=== PATIENT | male | born 1985 | race African-American/Black ===

== ENCOUNTER 2019-01-20 01:51 | Inpatient (IN) | payer SELFPAY ==
[~2019-01-20] VITALS: Ht 170.2 cm; Wt 114.8 kg
[2019-01-20] VITALS (12 sets, daily range): BP systolic 116–150; BP diastolic 75–108
--- NOTE | 2019-01-20 02:05 | PHYS DOC ---
Adult General Chief Complaint Chief Complaint: CHEST PAIN HPI HPI Patient is an obese 33 yo male who presents with complaint of chest pain that awoke him from sleeping. He describes the chest pain as feeling like "something is stuck". He reports the pain gets a little worse with swallowing. He denies having symptoms like this before. He denies radiation of pain through his back or into his neck or arms. He denies shortness of breath. He does report he has had anxiety attacks in the past but that they have caused shaking, never chest pain. He reports that prior to going to sleep he ate chicken fingers at [employer], then took a methylprednisolone that he was prescribed for an ear infection, and laid down. He denies family history of cardiac disease. He denies any PMH. He denies smoking, drug use, or etoh use. He denies recent surgery, immobilization, or travel. Review of Systems Review of Systems Constitutional: Denies fever or chills [] Eyes: Denies change in visual acuity, redness, or eye pain [] Respiratory: Denies cough or shortness of breath [] Cardiovascular: Admits chest pain. Denies palpitations. GI: Denies abdominal pain, nausea, vomiting, bloody stools or diarrhea [] : Denies dysuria or hematuria [] All other systems were reviewed and found to be within normal limits, except as documented in this note. Allergies Allergies Allergies Coded Allergies Type Severity Reaction Last Updated Verified No Known Drug Allergies 01/20/19 No Physical Exam Physical Exam Constitutional: Well developed, well nourished, no acute distress, non-toxic appearance. [] HENT: Normocephalic, atraumatic, Cardiovascular:Heart rate regular rhythm, no murmur [] Lungs & Thorax: Bilateral breath sounds clear to auscultation [] Abdomen: Bowel sounds normal, soft, no tenderness, no masses Back: No tenderness, no lesions Extremities: No tenderness, no cyanosis, no swelling, no palpable cords. Current Patient Data Vital Signs Vital Signs Date Time Temp Pulse Resp B/P (MAP) Pulse Ox O2 Delivery O2 Flow Rate FiO2 01/20/19 02:05 98.5 158/92 (114) 99 Room Air 98.5 Lab Values Laboratory Tests Test 01/20/19 02:20 White Blood Count 8.1 x10^3/uL (4.0-11.0) Red Blood Count 4.82 x10^6/uL (4.30-5.70) Hemoglobin 14.4 g/dL (13.0-17.5) Hematocrit 43.2 % (39.0-53.0) Mean Corpuscular Volume 90 fL (79-100) Mean Corpuscular Hemoglobin 30 pg (25-35) Mean Corpuscular Hemoglobin Concent 33 g/dL (31-37) Red Cell Distribution Width 13.8 % (11.5-14.5) Platelet Count 285 x10^3/uL (140-400) Neutrophils (%) (Auto) 69 % (31-73) Lymphocytes (%) (Auto) 22 % (24-48) L Monocytes (%) (Auto) 8 % (0-9) Eosinophils (%) (Auto) 0 % (0-3) Basophils (%) (Auto) 1 % (0-3) Neutrophils # (Auto) 5.6 x10^3uL (1.8-7.7) Lymphocytes # (Auto) 1.8 x10^3/uL (1.0-4.8) Monocytes # (Auto) 0.6 x10^3/uL (0.0-1.1) Eosinophils # (Auto) 0.0 x10^3/uL (0.0-0.7) Basophils # (Auto) 0.1 x10^3/uL (0.0-0.2) Sodium Level 143 mmol/L (136-145) Potassium Level 3.9 mmol/L (3.5-5.1) Chloride Level 106 mmol/L (98-107) Carbon Dioxide Level 27 mmol/L (21-32) Anion Gap 10 (6-14) Blood Urea Nitrogen 18 mg/dL (8-26) Creatinine 1.1 mg/dL (0.7-1.3) Estimated GFR (Cockcroft-Gault) 77.1 BUN/Creatinine Ratio 16 (6-20) Glucose Level 140 mg/dL (70-99) H Calcium Level 8.7 mg/dL (8.5-10.1) Total Bilirubin 0.3 mg/dL (0.2-1.0) Aspartate Amino Transferase (AST) 14 U/L (15-37) L Alanine Aminotransferase (ALT) 30 U/L (16-63) Alkaline Phosphatase 81 U/L (46-116) Troponin I Quantitative 0.196 ng/mL (0.000-0.055) Total Protein 6.9 g/dL (6.4-8.2) Albumin 3.7 g/dL (3.4-5.0) Albumin/Globulin Ratio 1.2 (1.0-1.7) Lipase 105 U/L (73-393) Laboratory Tests 01/20/19 02:20 Laboratory Tests 01/20/19 02:20 EKG EKG [@0157; HR 66 BPM; NS NO ACUTE ISCHEMIC CHAGNES NOTED. Radiology/Procedures Radiology/Procedures [PROCEDURE: PORTABLE CHEST 1V Single view chest dated 01/20/2019. No comparison available. Chest pain. FINDINGS: Single upright portable exam performed. Study is limited due to low lung volumes. Heart and mediastinal contours within normal limits. Lungs are clear. No consolidation or pleural effusion. No pneumothorax. IMPRESSION: No acute radiographic abnormality. Electronically signed by: Angie Miranda MD (01/20/2019 3:35 AM) [facility] DICTATED and SIGNED BY: ANGIE MIRANDA MD DATE: 01/20/19 0335 ] Course & Med Decision Making Course & Med Decision Making Patient is a 30 yo male with no PMH who presents with complaint of sudden onset midline sternal pain. Patient reports he ate at [employer] this evening, took medication for his ear, then went to bed. He denies using drugs tonight. On physical exam vitals WNL, patient resting comfortably. Heart sounds RRR no M. Lungs CTAB. EKG reveals NSR w/ HR at 66bpm. CXR unremarkable. Labs reveal elevated troponin 0.196. Remainder of labs WNL. Patient received nitroglycerin and aspirin. D/t elevated troponin decision made to admit patient. Patient admitted to [facility] for further evaluation PER usual local protocol. Discussed plan with patient who voiced understanding and agreement with the plan. heparin initiated inpt cards consultation placed. no pleruitic pain not sob at all. does not sound like pe or dissection. Dragon Disclaimer Dragon Disclaimer This electronic medical record was generated, in whole or in part, using a voice recognition dictation system. Departure Departure Impression: Primary Impression: Chest pain Disposition: ADMITTED INPATIENT Admitting Physician: Benoit Hunt Condition: SARAI YI MD Jan 20, 2019 02:05
[2019-01-20 02:39] LABS: BASO # 0.1 x10^3/uL (0.0-0.2); BASO % 1 % (0-3); EOS % 0 % (0-3); HEMATOCRIT 43.2 % (39.0-53.0); HEMOGLOBIN 14.4 g/dL (13.0-17.5); LYMPH # 1.8 x10^3/uL (1.0-4.8); LYMPH % 22 % (24-48); MEAN CORPUSCULAR HEMOGLOBIN 30 pg (25-35); MEAN CORPUSCULAR HGB CONC 33 g/dL (31-37); MEAN CORPUSCULAR VOLUME 90 fL (79-100); MONO # 0.6 x10^3/uL (0.0-1.1); MONO % 8 % (0-9); NEUT # 5.6 x10^3uL (1.8-7.7); NEUT % 69 % (31-73); PLATELET COUNT 285 x10^3/uL (140-400); RED BLOOD COUNT 4.82 x10^6/uL (4.30-5.70); RED CELL DISTRIBUTION WIDTH 13.8 % (11.5-14.5); WHITE BLOOD COUNT 8.1 x10^3/uL (4.0-11.0)
[2019-01-20 02:48] LABS: CALCIUM 8.7 mg/dL (8.5-10.1); CREATININE 1.1 mg/dL (0.7-1.3); GFR 77.1; POTASSIUM 3.9 mmol/L (3.5-5.1)
[2019-01-20 02:53] LABS: ALBUMIN 3.7 g/dL (3.4-5.0); ALBUMIN/GLOBULIN RATIO 1.2 (1.0-1.7); TOTAL BILIRUBIN 0.3 mg/dL (0.2-1.0); TOTAL PROTEIN 6.9 g/dL (6.4-8.2)
[2019-01-20] MEDS ORDERED: HEPARIN 25,000UTS/500ML PREMIX 500 ML IV PRN (03:15)
[2019-01-20] MEDS ORDERED: ASPIRIN CHEWABLE 81 MG TABLET. PO ONE (03:15)
[2019-01-20] MEDS ORDERED: HEPARIN for IV BOLUS 10,000 UNIT/10 ML VIAL. IV PRN (03:15)
[2019-01-20] MEDS ORDERED: MORPHINE SULFATE 4 MG/ML VIAL. IV PRN (03:15)
[2019-01-20] MEDS ORDERED: NITROGLYCERIN SUBLINGUAL 0.4 MG BOTTLE OF 25. SL PRN ×3 (03:15→13:30)
--- NOTE | 2019-01-20 03:39 | RAD ---
Single view chest dated 01/20/2019. No comparison available. Chest pain. FINDINGS: Single upright portable exam performed. Study is limited due to low lung volumes. Heart and mediastinal contours within normal limits. Lungs are clear. No consolidation or pleural effusion. No pneumothorax. IMPRESSION: No acute radiographic abnormality. Electronically signed by: Shaw Miranda MD (01/20/2019 3:35 AM) [facility]
--- NOTE | 2019-01-20 04:30 | NUR ---
The patient, GEOVANNY ABDUL, 33 y/o, M admitted by JACK CHINCHILLA III, DO, was given written information regarding hospital policies, unit procedures and contact persons. DISCUSSED POC, LABS, CARDIAC LABS, HEPARIN DRIP, AND MAGNETIC TAPE WINDER EXPLAINED AND APPLIED TO PT. Valuables were checked and DOCUMENTED IN EMAR LCRN.
--- NOTE | 2019-01-20 07:38 | EKG ---
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
--- NOTE | 2019-01-20 08:00 | PDOC1 ---
History and Physical Date of Admission Date of Admission DATE: 01/20/19 TIME: 07:43 Identification/Chief Complaint Chief Complaint Chest pain Source Source: Patient History of Present Illness History of Present Illness 33 yo obese male who presents with complaint of chest pain that awoke him from sleeping at 1:00am. He describes the chest pain as feeling like "something is stuck". Patient had an Uber drive him here. He reports the pain gets a little worse with swallowing. He denies having symptoms like this before. He denies radiation of pain through his back or into his neck or arms. He denies shortness of breath. He does report he has had anxiety attacks in the past but that they have caused shaking, never chest pain. He reports that prior to going to sleep he ate chicken fingers at [employer], then took a methylprednisolone that he was prescribed for an ear infection, and laid down. He denies family history of cardiac disease. He denies any PMH. He denies smoking, drug use, or etoh use. He denies recent surgery, immobilization, or travel. Trop noted to be mildly elevated in ED. Was initiated on heparin gtt. Subsequent trop level further elevated this morning. Patient denies any drug use including cocaine or methamphetamine use. UDS pending. Reports suffering severe LILLY in 2009. Was treated at [facility]. Patient thinks he could have had a blood clot of something as he was treated with blood thinners for 3 months. Mother unsure as to what he was diagnosed with and his father is too. Past Medical History Cardiovascular: No pertinent hx Pulmonary: No pertinent hx GI: No pertinent hx Heme/Onc: No pertinent hx Hepatobiliary: No pertinent hx Psych: No pertinent hx Rheumatologic: No pertinent hx Infectious disease: No pertinent hx ENT: No pertinent hx Renal/: No pertinent hx Endocrine: No pertinent hx Dermatology: No pertinent hx Past Surgical History Past Surgical History: No pertinent history Family History Family History: Heart Disease (Maternal and paternal grandparents) Current Problem List Problem List Problems Medical Problems: (1) Chest pain Status: Acute Current Medications Current Medications Current Medications Aspirin (Children'S Aspirin) 324 mg 1X ONCE PO Last administered on 01/20/19at 03:23; Start 01/20/19 at 03:15; Stop 01/20/19 at 03:16; Status DC Nitroglycerin (Nitrostat) 0.4 mg PRN Q5MIN PRN SL CHEST PAIN; Start 01/20/19 at 03:15 Morphine Sulfate (Morphine Sulfate) 4 mg PRN Q2HR PRN IV PAIN; Start 01/20/19 at 03:15; Stop 01/21/19 at 03:14 Nitroglycerin (Nitrostat) 0.4 mg PRN Q5MIN PRN SL CHEST PAIN; Start 01/20/19 at 03:15; Stop 01/21/19 at 03:14 Heparin Sodium/ Dextrose 500 ml @ 0 mls/hr CONT PRN IV SEE I/O RECORD Last administered on 01/20/19at 03:25; Start 01/20/19 at 03:15 Heparin Sodium (Porcine) (Heparin Sodium) 2,800 unit PRN Q6HRS PRN IV FOR UFH LEVEL LESS THAN 0.2 Last administered on 01/20/19at 03:24; Start 01/20/19 at 03:15 Allergies Allergies: Coded Allergies: No Known Drug Allergies (Unverified , 01/20/19) ROS General: YES: Fatigue, Malaise; No: Chills, Night Sweats, Appetite, Other PSYCHOLOGICAL ROS: No: Anxiety, Behavioral Disorder, Concentration difficultie , Decreased libido, Depression, Disorientation, Hallucinations, Hostility, Irritablity, Memory difficulties, Mood Swings, Obsessive thoughts, Physical abuse, Sexual abuse, Sleep disturbances, Suicidal ideation, Other Eyes: No Blurry vision, No Decreased vision, No Double vision, No Dry eyes, No Excessive tearing, No Eye Pain, No Itchy Eyes, No Loss of vision, No Photophobia , No Scotomata, No Uses contacts, No Uses glasses, No Other HEENT: No: Heacaches, Visual Changes, Hearing change, Nasal congestion, Nasal discharge, Oral lesions, Sinus pain, Sore Throat, Epistaxis, Sneezing, Snoring, Tinnitus, Vertigo, Vocal changes, Other ALLERGY AND IMMUNOLOGY: No: Hives, Insect Bite Sensitivity, Itchy/Watery Eyes, Nasal Congestion, Post Nasal Drip, Seasonal Allergies, Other Hematological and Lymphatic: No: Bleeding Problems, Blood Clots, Blood Transfusions, Brusing, Night Sweats, Pallor, Swollen Lymph Nodes, Other ENDOCRINE: No: Breast Changes, Galactorrhea, Hair Pattern Changes, Hot Flashes , Malaise/lethargy, Mood Swings, Palpitations, Polydipsia/polyuria, Skin Changes , Temperature Intolerance, Unexpected Weight Changes, Other Breast: No New/Changing Breast Lumps, No Nipple changes, No Nipple discharge, No Other Respiratory: YES: Pleuritic Pain, Shortness of breath, SOB with excertion; No: Cough, Hemoptysis, Orthopnea, Sputum Changes, Stridor, Tachypnea, Wheezing, Other Cardiovascular: yes Chest Pain, yes Palpitations; No Orthopnea, No Paroxysmal Noc. Dyspnea, No Edema, No Lt Headedness, No Other Gastrointestinal: No Nausea, No Vomiting, No Abdominal Pain, No Diarrhea, No Constipation, No Melena, No Hematochezia, No Other Genitourinary: No Dysuria, No Frequency, No Incontinence, No Hematuria, No Retention, No Discharge, No Urgency, No Pain, No Flank Pain, No Other, No , No , No , No , No , No , No Musculoskeletal: No Gait Disturbance, No Joint Pain, No Joint Stiffness, No Joint Swelling, No Muscle Pain, No Muscular Weakness, No Pain In:, No Swelling In:, No Other Neurological: No Behavorial Changes, No Bowel/Bladder ControlChng, No Confusion , No Dizziness, No Gait Disturbance, No Headaches, No Impaired Coord/balance, No Memory Loss, No Numbness/Tingling, No Seizures, No Speech Problems, No Tremors, No Visual Changes, No Weakness, No Other Skin: No Dry Skin, No Eczema, No Hair Changes, No Lumps, No Mole Changes, No Mottling, No Nail Changes, No Pruritus, No Rash, No Skin Lesion Changes, No Other, No Acne Physical Exam General: Alert, Oriented X3, Cooperative, No acute distress HEENT: Atraumatic, PERRLA, EOMI, Mucous membr. moist/pink Lungs: Clear to auscultation, Normal air movement Heart: S1S2, RRR, no gallops, no murmurs Abdomen: Normal bowel sounds, Soft, No tenderness, No hepatosplenomegaly, No masses Male Genitals Exam: normal genitalia, normal prostate Extremities: No clubbing, No cyanosis, No edema, Normal pulses, No tenderness/ swelling Skin: No rashes, No breakdown, No significant lesion Neuro: Normal gait, Normal speech, Strength at 5/5 X4 ext, Normal tone, Sensation intact, Cranial nerves 3-12 NL, Reflexes 2+ Psych/Mental Status: Mental status NL, Mood NL Vitals Vitals Vital Signs Date Time Temp Pulse Resp B/P (MAP) Pulse Ox O2 Delivery O2 Flow Rate FiO2 01/20/19 05:31 Room Air 01/20/19 04:16 98.5 60 16 150/96 (114) 97 98.5 Labs Labs Laboratory Tests Test 01/20/19 02:20 White Blood Count 8.1 x10^3/uL (4.0-11.0) Red Blood Count 4.82 x10^6/uL (4.30-5.70) Hemoglobin 14.4 g/dL (13.0-17.5) Hematocrit 43.2 % (39.0-53.0) Mean Corpuscular Volume 90 fL (79-100) Mean Corpuscular Hemoglobin 30 pg (25-35) Mean Corpuscular Hemoglobin Concent 33 g/dL (31-37) Red Cell Distribution Width 13.8 % (11.5-14.5) Platelet Count 285 x10^3/uL (140-400) Neutrophils (%) (Auto) 69 % (31-73) Lymphocytes (%) (Auto) 22 % (24-48) Monocytes (%) (Auto) 8 % (0-9) Eosinophils (%) (Auto) 0 % (0-3) Basophils (%) (Auto) 1 % (0-3) Neutrophils # (Auto) 5.6 x10^3uL (1.8-7.7) Lymphocytes # (Auto) 1.8 x10^3/uL (1.0-4.8) Monocytes # (Auto) 0.6 x10^3/uL (0.0-1.1) Eosinophils # (Auto) 0.0 x10^3/uL (0.0-0.7) Basophils # (Auto) 0.1 x10^3/uL (0.0-0.2) Sodium Level 143 mmol/L (136-145) Potassium Level 3.9 mmol/L (3.5-5.1) Chloride Level 106 mmol/L (98-107) Carbon Dioxide Level 27 mmol/L (21-32) Anion Gap 10 (6-14) Blood Urea Nitrogen 18 mg/dL (8-26) Creatinine 1.1 mg/dL (0.7-1.3) Estimated GFR (Cockcroft-Gault) 77.1 BUN/Creatinine Ratio 16 (6-20) Glucose Level 140 mg/dL (70-99) Calcium Level 8.7 mg/dL (8.5-10.1) Total Bilirubin 0.3 mg/dL (0.2-1.0) Aspartate Amino Transf (AST/SGOT) 14 U/L (15-37) Alanine Aminotransferase (ALT/SGPT) 30 U/L (16-63) Alkaline Phosphatase 81 U/L (46-116) Troponin I Quantitative 0.196 ng/mL (0.000-0.055) Total Protein 6.9 g/dL (6.4-8.2) Albumin 3.7 g/dL (3.4-5.0) Albumin/Globulin Ratio 1.2 (1.0-1.7) Lipase 105 U/L (73-393) Laboratory Tests Test 01/20/19 02:20 White Blood Count 8.1 x10^3/uL (4.0-11.0) Red Blood Count 4.82 x10^6/uL (4.30-5.70) Hemoglobin 14.4 g/dL (13.0-17.5) Hematocrit 43.2 % (39.0-53.0) Mean Corpuscular Volume 90 fL (79-100) Mean Corpuscular Hemoglobin 30 pg (25-35) Mean Corpuscular Hemoglobin Concent 33 g/dL (31-37) Red Cell Distribution Width 13.8 % (11.5-14.5) Platelet Count 285 x10^3/uL (140-400) Neutrophils (%) (Auto) 69 % (31-73) Lymphocytes (%) (Auto) 22 % (24-48) Monocytes (%) (Auto) 8 % (0-9) Eosinophils (%) (Auto) 0 % (0-3) Basophils (%) (Auto) 1 % (0-3) Neutrophils # (Auto) 5.6 x10^3uL (1.8-7.7) Lymphocytes # (Auto) 1.8 x10^3/uL (1.0-4.8) Monocytes # (Auto) 0.6 x10^3/uL (0.0-1.1) Eosinophils # (Auto) 0.0 x10^3/uL (0.0-0.7) Basophils # (Auto) 0.1 x10^3/uL (0.0-0.2) Sodium Level 143 mmol/L (136-145) Potassium Level 3.9 mmol/L (3.5-5.1) Chloride Level 106 mmol/L (98-107) Carbon Dioxide Level 27 mmol/L (21-32) Anion Gap 10 (6-14) Blood Urea Nitrogen 18 mg/dL (8-26) Creatinine 1.1 mg/dL (0.7-1.3) Estimated GFR (Cockcroft-Gault) 77.1 BUN/Creatinine Ratio 16 (6-20) Glucose Level 140 mg/dL (70-99) Calcium Level 8.7 mg/dL (8.5-10.1) Total Bilirubin 0.3 mg/dL (0.2-1.0) Aspartate Amino Transf (AST/SGOT) 14 U/L (15-37) Alanine Aminotransferase (ALT/SGPT) 30 U/L (16-63) Alkaline Phosphatase 81 U/L (46-116) Troponin I Quantitative 0.196 ng/mL (0.000-0.055) Total Protein 6.9 g/dL (6.4-8.2) Albumin 3.7 g/dL (3.4-5.0) Albumin/Globulin Ratio 1.2 (1.0-1.7) Lipase 105 U/L (73-393) Images Images CXR - No acute radiographic abnormality. VTE Prophylaxis Ordered VTE Prophylaxis Devices: Yes VTE Pharmacological Prophylaxi: Yes Assessment/Plan Assessment/Plan A/P: Chest pain - with elevated trop, this is an NSTEMI, on heparin GTT. Morphine, NTG, ASA. 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 Hyperglycemia - will check A1c Obesity - ongoing, needs Hypertension - needs secondary w/u. Treat FEN - NPO PPX - SCDs FULL CODE Inpatient for NSTEMI, needs to go to cathead worker urgently JESSICA TRENT MD Jan 20, 2019 08:00
[2019-01-20] MEDS ORDERED: ANTI-COAG MONITOR BY PHARMACY. MC PRN (08:15)
--- NOTE | 2019-01-20 09:18 | PDOC2 ---
CARDIAC CONSULT DATE OF CONSULT Date of Consult DATE: 01/20/19 TIME: 09:15 REASON FOR CONSULT Reason for Consult: NSTEMI REFERRING PHYSICIAN Referring Physician: Raghu SOURCE Source: Chart review, Patient HISTORY OF PRESENT ILLNESS HISTORY OF PRESENT ILLNESS This is a 33 yo male who presented secondary to chest pain. Patient reports going to be feeling well. Woke up this morning around 1:00 am. Had aching, pressure in his central chest. [place] as if something was "stuck" in his chest. Non-radiating. Associated with SOA and nausea. No diaphoresis or palpitations. Got up out of be and took a drink. Did not improved pain. Pain continued to be pretty intense so he called an Uber to bring him to the ED for further evaluation. Pain seemed to improved with ASA in ED, but did not completely resolve. Trop noted to be mildly elevated in ED. Was initiated on heparin gtt. Subsequent trop level further elevated this morning. Patient denies any drug use including cocaine or methamphetamine use. UDS pending. Reports suffering severe LILLY in 2009. Was treated at [facility]. Patient thinks he could have had a blood clot of something as he was treated with blood thinners for 3 months. Mother unsure as to what he was diagnosed with. PAST MEDICAL HISTORY Cardiovascular: HTN Pulmonary: No pertinent hx CENTRAL NERVOUS SYSTEM: Other (possible clot? treated wtih OAC x 3 months in 2009) GI: No pertinent hx Heme/Onc: No pertinent hx Hepatobiliary: No pertinent hx Psych: Anxiety, Depression Musculoskeletal: Other (no pertinent hx) Rheumatologic: No pertinent hx Infectious disease: No pertinent hx ENT: No pertinent hx Renal/: No pertinent hx Endocrine: No pertinent hx Dermatology: No pertinent hx PAST SURGICAL HISTORY Past Surgical History: No pertinent history FAMILY HISTORY Family History: Coronary Artery Disease (grandfather), Hypertension SOCIAL HISTORY Smoke: No ALCOHOL: none Drugs: None Lives: with Family CURRENT MEDICATIONS CURRENT MEDICATIONS Current Medications Medications (Trade) Dose Ordered Sig/Edwige Route PRN Reason Start Time Stop Time Status Last Admin Dose Admin Aspirin (Children'S Aspirin) 324 mg 1X ONCE PO 01/20/19 03:15 01/20/19 03:16 DC 01/20/19 03:23 Heparin Sodium/ Dextrose 500 ml @ 0 mls/hr CONT PRN IV SEE I/O RECORD 01/20/19 03:15 01/20/19 03:25 Heparin Sodium (Porcine) (Heparin Sodium) 2,800 unit PRN Q6HRS PRN IV FOR UFH LEVEL LESS THAN 0.2 01/20/19 03:15 01/20/19 03:24 ALLERGIES ALLERGIES: Coded Allergies: No Known Drug Allergies (Unverified , 01/20/19) ROS Review of System 14 point ROS conducted with pertinent positives noted above in HPI. PHYSICAL EXAM General: Alert, Oriented X3, Cooperative, No acute distress HEENT: Atraumatic, Mucous membr. moist/pink Lungs: Clear to auscultation, Normal air movement Heart: Regular rate, Normal S1, Normal S2, No murmurs Abdomen: Soft, No tenderness Extremities: No edema, Normal pulses Neuro: Normal speech, Sensation intact Psych/Mental Status: Mental status NL, Mood NL MUSCULOSKELETAL: Osteoarthritic changes both hands VITALS VITALS Vital Signs Date Time Temp Pulse Resp B/P (MAP) Pulse Ox O2 Delivery O2 Flow Rate FiO2 01/20/19 07:00 98.1 61 18 143/108 (120) 98 Room Air 98.1 LABS Lab: Laboratory Tests Test 01/20/19 02:20 01/20/19 07:49 White Blood Count 8.1 x10^3/uL (4.0-11.0) Red Blood Count 4.82 x10^6/uL (4.30-5.70) Hemoglobin 14.4 g/dL (13.0-17.5) Hematocrit 43.2 % (39.0-53.0) Mean Corpuscular Volume 90 fL (79-100) Mean Corpuscular Hemoglobin 30 pg (25-35) Mean Corpuscular Hemoglobin Concent 33 g/dL (31-37) Red Cell Distribution Width 13.8 % (11.5-14.5) Platelet Count 285 x10^3/uL (140-400) Neutrophils (%) (Auto) 69 % (31-73) Lymphocytes (%) (Auto) 22 % (24-48) Monocytes (%) (Auto) 8 % (0-9) Eosinophils (%) (Auto) 0 % (0-3) Basophils (%) (Auto) 1 % (0-3) Neutrophils # (Auto) 5.6 x10^3uL (1.8-7.7) Lymphocytes # (Auto) 1.8 x10^3/uL (1.0-4.8) Monocytes # (Auto) 0.6 x10^3/uL (0.0-1.1) Eosinophils # (Auto) 0.0 x10^3/uL (0.0-0.7) Basophils # (Auto) 0.1 x10^3/uL (0.0-0.2) Sodium Level 143 mmol/L (136-145) Potassium Level 3.9 mmol/L (3.5-5.1) Chloride Level 106 mmol/L (98-107) Carbon Dioxide Level 27 mmol/L (21-32) Anion Gap 10 (6-14) Blood Urea Nitrogen 18 mg/dL (8-26) Creatinine 1.1 mg/dL (0.7-1.3) Estimated GFR (Cockcroft-Gault) 77.1 BUN/Creatinine Ratio 16 (6-20) Glucose Level 140 mg/dL (70-99) Calcium Level 8.7 mg/dL (8.5-10.1) Total Bilirubin 0.3 mg/dL (0.2-1.0) Aspartate Amino Transf (AST/SGOT) 14 U/L (15-37) Alanine Aminotransferase (ALT/SGPT) 30 U/L (16-63) Alkaline Phosphatase 81 U/L (46-116) Troponin I Quantitative 0.196 ng/mL (0.000-0.055) 6.446 ng/mL (0.000-0.055) Total Protein 6.9 g/dL (6.4-8.2) Albumin 3.7 g/dL (3.4-5.0) Albumin/Globulin Ratio 1.2 (1.0-1.7) Lipase 105 U/L (73-393) Heparin Anti-Xa Act, Unfractionated 0.41 IU/mL (0.30-0.70) ASSESSMENT/PLAN ASSESSMENT/PLAN 1. Chest pain, typical features 2. NSTEMI; trop highest 6. on heparin gtt 3. Hypertension 4. Hyperglycemia 5. Obesity Recommendations EKG now Echo to assess LV systolic function ASA Continue heparin gtt check lipids Add low-dose BB await UDS results If no cocaine, methamphetamines noted, will plan for cardiac catheterization with possible PCI. R/b/a discussed with patient and he is agreeable. OSWALD RODRIGUEZ APRN Jan 20, 2019 09:18
--- NOTE | 2019-01-20 10:07 | EKG ---
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
[2019-01-20 10:20] LABS: BARBITURATES NEG (NEG); BENZODIAZEPINES NEG (NEG); CANNABINOIDS NEG (NEG); COCAINE NEG (NEG); METHADONE NEG (NEG); OPIATES NEG (NEG); PHENCYCLIDINE NEG (NEG)
[2019-01-20 10:22] LABS: CHOLESTEROL/HDL RATIO 3.1
[2019-01-20 10:22] LABS: AMPHETAMINE/METHAMPHETAMINE NEG (NEG)
[2019-01-20] MEDS ORDERED: METOPROLOL TART IMMED RELEASE 25 MG TABLET. PO SCH (11:00)
--- NOTE | 2019-01-20 11:30 | CARD ---
MR#: [id number] Date of Study: 01/20/2019 Ordering Physician: OSWALD RODRIGUEZ, Referring Physician: Jace HA: Dawn Juarez APPROVED REPORT EXAM: Two-dimensional and M-mode echocardiogram with Doppler and color Doppler. Other Information Quality : GoodHR: 71bpm Rhythm : NSRTechnically limited study due to body habitus. INDICATION Chest Pain Elevated Troponin 2D DIMENSIONS RVDd2.4 (2.9-3.5cm)Left Atrium(2D)3.6 (1.6-4.0cm) IVSd1.1 (0.7-1.1cm)Aortic Root(2D)3.2 (2.0-3.7cm) LVDd5.6 (3.9-5.9cm)LVOT Diameter2.2 (1.8-2.4cm) PWd1.2 (0.7-1.1cm)LVDs3.2 (2.5-4.0cm) FS (%) 42.5 %SV112.1 ml LVEF(%)72.9 (>50%) Aortic Valve AoV Peak Lazarus.114.8cm/sAoV VTI30.7cm AO Peak GR.5.3mmHgLVOT VTI 16.86cm AO Mean GR.5mmHg TDI Lateral E' P. V10.68cm/sMedial E' P. V9.01cm/s Tricuspid Valve TR P. Yipdgoak557cr/sRAP [id number] TR Peak Gr.[id number] Pulmonary Vein S1 Ridbzuce52.2cm/sS2 Lwpbrvxu44.01cm/s D2 Gephgkch10.0cm/sPVa [id number] LEFT VENTRICLE The left ventricle is normal size. There is borderline concentric left ventricular hypertrophy. The l eft ventricular systolic function is moderately decreased. EF 40%. There is mild to moderate global h ypokinesis. Tissue Doppler imaging reveals moderate left ventricular diastolic dysfunction. RIGHT VENTRICLE The right ventricle is normal size. There is normal right ventricular wall thickness. The right ventr icular systolic function is normal. ATRIA The left atrium size is normal. The right atrium size is normal. The interatrial septum is intact wit h no evidence for an atrial septal defect or patent foramen ovale as noted on 2-D or Doppler imaging. AORTIC VALVE The aortic valve is normal in structure and function. Doppler and Color Flow revealed no significant aortic regurgitation. There is no significant aortic valvular stenosis. MITRAL VALVE The mitral valve is normal in structure and function. There is no evidence of mitral valve prolapse. There is no mitral valve stenosis. Doppler and Color Flow revealed no mitral valve regurgitation note d. TRICUSPID VALVE The tricuspid valve is normal in structure and function. Doppler and Color Flow revealed no tricuspid valve regurgitation noted. There is no tricuspid valve stenosis. PULMONIC VALVE The pulmonic valve is not well visualized. Doppler and Color Flow revealed no pulmonic valvular regur gitation. GREAT VESSELS The aortic root is normal in size. The IVC is normal in size and collapses >50% with inspiration. PERICARDIAL EFFUSION There is no evidence of significant pericardial effusion. Critical Notification Critical Value: No <Conclusion> The left ventricular systolic function is moderately decreased. EF 40%. There is mild to moderate global hypokinesis. Technically difficult study. Signed by : Carlos Lentz, Electronically Approved : 01/20/2019 11:29:56
[2019-01-20 11:32] LABS: PROTHROMBIN TIME PATIENT 13.9 SEC (11.7-14.0)
[2019-01-20] MEDS ORDERED: LIDOCAINE 1% Multi-Dose 20 ML VIAL. ONE (11:55)
[2019-01-20] MEDS ORDERED: IOHEXOL 300 MG/ML 100ML VIAL. ONE (11:55)
[2019-01-20] MEDS ORDERED: MIDAZOLAM HCL/PF 2 MG/2 ML VIAL. ONE (12:22)
[2019-01-20] MEDS ORDERED: fentaNYL PF VIAL 100 MCG/2 ML VIAL ONE (12:22)
--- NOTE | 2019-01-20 12:28 | PDOC ---
MODERATE SEDATION ASSESSMENT RISKS/ALTERNATIVES Risks/Alternatives Risks and alternatives of this type of sedation and procedure discussed with: RISK/ALTERNATIVES: Patient H & P ON CHART H & P H & P on chart and reviewed for co-morbid conditions and appropriate labs. H&P ON CHART: Yes STATUS PREG STATUS ASSESSED: N/A MEDS/ALLERGIES REVIEWED Meds/Allergies Reviewed Medications and Allergies including time and route of recently administered narcotics and sedatives. MEDS/ALLERGIES REVIEWED: Yes ASA RATING ASA RATING: II AIRWAY ASSESSMENT Airway Assessment Airway patency, oral function limitations, presence of caps, crowns, dentures, partials, and ability to extend neck assessed. AIRWAY ASSESSMENT: Yes MALLAMPATI SCORE MALLAMPATI SCORE: II PRE-SEDATION ASSESSMENT PRE-SEDATION ASSESSMENT: Yes JEFFREY ROBERTSON MD Jan 20, 2019 12:28
[2019-01-20] MEDS ORDERED: LIDOCAINE 1% Multi-Dose 20 ML VIAL. INJ ONE (13:00)
[2019-01-20] MEDS ORDERED: IOHEXOL 300 MG/ML 100ML VIAL. IART ONE (13:00)
[2019-01-20] MEDS ORDERED: fentaNYL PF VIAL 100 MCG/2 ML VIAL IV ONE (13:00)
[2019-01-20] MEDS ORDERED: MIDAZOLAM HCL/PF 2 MG/2 ML VIAL. IV ONE (13:00)
[2019-01-20] MEDS ORDERED: CONTRAST GIVEN. MC PRN (13:15)
[2019-01-20] MEDS ORDERED: 0.9 % SODIUM CHLORIDE 10 ML DISP.SYRIN. IV PRN (13:30)
[2019-01-20] MEDS ORDERED: IV NORMAL SALINE 1000ML BAG 1,000 ML IV SCH (14:00)
--- NOTE | 2019-01-20 14:37 | NUR ---
SS following for discharge planning. SS reviewed pt chart. Pt is from home and is currently on room air. No discharge needs noted at this time. SS will continue to follow for pending discharge needs.
[2019-01-20] MEDS: METOPROLOL SUCC 24HR ER 25 MG TAB.ER.24H. PO SCH (15:00)
[2019-01-20] MEDS: LISINOPRIL 5 MG TABLET. PO SCH (15:01)
--- NOTE | 2019-01-20 15:43 | CARD ---
MR#: [id number] Date of Study: 01/20/2019 Ordering Physician: OSWALD RODRIGUEZ, Referring Physician: Jace HA: MO MCGRATH RTR APPROVED REPORT Procedures Left heart catheterization Left ventriculogram Selective coronary angiogram The patient is a 33-year-old male who was admitted with episodes of chest discomfort. He had a mild e levation in troponin. In this setting cardiac catheterization was recommended. Risks and benefits wer e discussed with the patient. He agreed to proceed. After informed consent was obtained the patient was brought to the heart catheterization lab. The are a of the right femoral artery was prepared the usual manner with Betadine, sterile draping and local anesthetic. An 18-gauge needle was used to enter the right femoral artery, a wire placed the 6 Martiniquais sheath placed over the wire. A 6 Martiniquais JL3.5 diagnostic catheter was used to engage the left webb ry system and sequential injections in various views were obtained. A 6 Martiniquais Niko right diagnos tic catheter was used to engage the right coronary artery and sequential injections in various views were obtained. A pigtail catheter was advanced to the ascending aorta and then the left ventricle. A 30 AMBROSE left ventriculogram was performed. Pressures were measured. The catheter was removed the lisa ent. Injection the sheath showed normal placement. The sheath was removed and sealed with an Angio-Se al product. The patient was moved to the holding area in stable condition. Findings. Hemodynamics. LV pressure of 124/ 8, 16. Aortic root pressure 122/82. Coronaries. Left main. The left main was a normal size vessel. It had no lesions. Left anterior descending. The LAD was a moderate size vessel with normal distribution. It had minimal mid smooth tapering of 10%. Left circumflex. The left circumflex was a moderate to moderately large size dominant vessel. It had no lesions. Right coronary artery. The right coronary was a moderate to moderately small vessel with no lesions. Left ventriculogram. The left ventricle had mild to moderately decreased systolic function. There was mid to distal anteri or wall and apical hypokinesis. Ejection fraction was estimated at 38%. <Conclusion> Minimal single-vessel coronary artery disease with no lesions greater than 15%. Mild to moderately decreased LV systolic function with an ejection fraction of 38% and mid to distal anterior wall and apical hypokinesis. Signed by : Juaquin Muñiz MD Electronically Approved : 01/20/2019 15:42:16
[2019-01-20] MEDS ORDERED: ATORVASTATIN CALCIUM 20 MG TABLET PO SCH (21:00)
[2019-01-20 23:10] LABS: HEMOGLOBIN A1C 5.6 % (4.8-5.6)
[2019-01-21 03:00] VITALS: BP 111/58
[2019-01-21 05:17] LABS: HEMATOCRIT 41.8 % (39.0-53.0); HEMOGLOBIN 13.9 g/dL (13.0-17.5); RED BLOOD COUNT 4.65 x10^6/uL (4.30-5.70); RED CELL DISTRIBUTION WIDTH 14.2 % (11.5-14.5); WHITE BLOOD COUNT 5.6 x10^3/uL (4.0-11.0)
[2019-01-21 07:00] VITALS: BP 115/74
[2019-01-21] MEDS ORDERED: ASPIRIN ENTERIC COATED 81 MG TABLET.DR. PO SCH (08:00)
[2019-01-21] MEDS ORDERED: ASPIRIN ENTERIC COATED 325 MG TABLET.DR. PO SCH (08:00)
--- NOTE | 2019-01-21 08:38 | PDOC ---
PROGRESS NOTES Chief Complaint Chief Complaint A/P: Chest pain - with elevated trop, this is an NSTEMI, on heparin GTT. Morphine, NTG, ASA. EKG repeat, ECHO, cardiology, if his UDS is negative he should be in the center medical and lab director urgently. Hyperglycemia - will check A1c Obesity - ongoing, needs Hypertension - needs secondary w/u. Treat History of Present Illness History of Present Illness 33 yo obese male who presents with complaint of chest pain that awoke him from sleeping at 1:00am. He describes the chest pain as feeling like "something is stuck". Patient had an Uber drive him here. He reports the pain gets a little worse with swallowing. He denies having symptoms like this before. He denies radiation of pain through his back or into his neck or arms. He denies shortness of breath. He does report he has had anxiety attacks in the past but that they have caused shaking, never chest pain. He reports that prior to going to sleep he ate chicken fingers at [employer], then took a methylprednisolone that he was prescribed for an ear infection, and laid down. He denies family history of cardiac disease. He denies any PMH. He denies smoking, drug use, or etoh use. He denies recent surgery, immobilization, or travel. Trop noted to be mildly elevated in ED. Was initiated on heparin gtt. Subsequent trop level further elevated this morning. Patient denies any drug use including cocaine or methamphetamine use. UDS pending. Reports suffering severe LILLY in 2009. Was treated at [facility]. Patient thinks he could have had a blood clot of something as he was treated with blood thinners for 3 months. Mother unsure as to what he was diagnosed with and his father is too. To center medical and lab director on 01/20/19 with clean coronaries. to discharge today Plan: Syndrome X is a likelihood - Exercise, consider imipramine, long acting and short acting nitrates and in the future CCB or BB Vitals Vitals Vital Signs Date Time Temp Pulse Resp B/P (MAP) Pulse Ox O2 Delivery O2 Flow Rate FiO2 01/21/19 07:00 98.4 72 22 115/74 (88) 98 Room Air 2.0 98.4 Physical Exam General: Alert, Oriented X3, Cooperative, No acute distress Heart: Regular rate, Normal S1, Normal S2, No murmurs Abdomen: Normal bowel sounds, Soft, No tenderness, No hepatosplenomegaly, No masses Extremities: No clubbing, No cyanosis, No edema, Normal pulses, No tenderness/ swelling Skin: No rashes, No breakdown, No significant lesion Labs LABS Laboratory Tests Test 01/20/19 09:13 01/20/19 11:00 01/21/19 04:30 Urine Opiates Screen Neg (NEG) Urine Methadone Screen Neg (NEG) Urine Barbiturates Neg (NEG) Urine Phencyclidine Screen Neg (NEG) Urine Amphetamine/Methamphetamine Neg (NEG) Urine Benzodiazepines Screen Neg (NEG) Urine Cocaine Screen Neg (NEG) Urine Cannabinoids Screen Neg (NEG) Urine Ethyl Alcohol Neg (NEG) Erythrocyte Sedimentation Rate 1 (0-15) Prothrombin Time 13.9 SEC (11.7-14.0) Prothromb Time International Ratio 1.1 (0.8-1.1) Troponin I Quantitative 8.426 ng/mL (0.000-0.055) C-Reactive Protein, Quantitative 1.9 mg/L (0-3.3) White Blood Count 5.6 x10^3/uL (4.0-11.0) Red Blood Count 4.65 x10^6/uL (4.30-5.70) Hemoglobin 13.9 g/dL (13.0-17.5) Hematocrit 41.8 % (39.0-53.0) Mean Corpuscular Volume 90 fL (79-100) Mean Corpuscular Hemoglobin 30 pg (25-35) Mean Corpuscular Hemoglobin Concent 33 g/dL (31-37) Red Cell Distribution Width 14.2 % (11.5-14.5) Platelet Count 237 x10^3/uL (140-400) Assessment and Plan Assessmemt and Plan Problems Medical Problems: (1) Chest pain Status: Acute Comment Review of Relevant I have reviewed the following items rodolfo (where applicable) has been applied. Labs Laboratory Tests Test 01/20/19 02:20 01/20/19 07:49 01/20/19 09:13 01/20/19 11:00 White Blood Count 8.1 x10^3/uL (4.0-11.0) Red Blood Count 4.82 x10^6/uL (4.30-5.70) Hemoglobin 14.4 g/dL (13.0-17.5) Hematocrit 43.2 % (39.0-53.0) Mean Corpuscular Volume 90 fL (79-100) Mean Corpuscular Hemoglobin 30 pg (25-35) Mean Corpuscular Hemoglobin Concent 33 g/dL (31-37) Red Cell Distribution Width 13.8 % (11.5-14.5) Platelet Count 285 x10^3/uL (140-400) Neutrophils (%) (Auto) 69 % (31-73) Lymphocytes (%) (Auto) 22 % (24-48) Monocytes (%) (Auto) 8 % (0-9) Eosinophils (%) (Auto) 0 % (0-3) Basophils (%) (Auto) 1 % (0-3) Neutrophils # (Auto) 5.6 x10^3uL (1.8-7.7) Lymphocytes # (Auto) 1.8 x10^3/uL (1.0-4.8) Monocytes # (Auto) 0.6 x10^3/uL (0.0-1.1) Eosinophils # (Auto) 0.0 x10^3/uL (0.0-0.7) Basophils # (Auto) 0.1 x10^3/uL (0.0-0.2) Sodium Level 143 mmol/L (136-145) Potassium Level 3.9 mmol/L (3.5-5.1) Chloride Level 106 mmol/L (98-107) Carbon Dioxide Level 27 mmol/L (21-32) Anion Gap 10 (6-14) Blood Urea Nitrogen 18 mg/dL (8-26) Creatinine 1.1 mg/dL (0.7-1.3) Estimated GFR (Cockcroft-Gault) 77.1 BUN/Creatinine Ratio 16 (6-20) Glucose Level 140 mg/dL (70-99) Hemoglobin A1c 5.6 % (4.8-5.6) Calcium Level 8.7 mg/dL (8.5-10.1) Total Bilirubin 0.3 mg/dL (0.2-1.0) Aspartate Amino Transf (AST/SGOT) 14 U/L (15-37) Alanine Aminotransferase (ALT/SGPT) 30 U/L (16-63) Alkaline Phosphatase 81 U/L (46-116) Troponin I Quantitative 0.196 ng/mL (0.000-0.055) 6.446 ng/mL (0.000-0.055) 8.426 ng/mL (0.000-0.055) Total Protein 6.9 g/dL (6.4-8.2) Albumin 3.7 g/dL (3.4-5.0) Albumin/Globulin Ratio 1.2 (1.0-1.7) Lipase 105 U/L (73-393) Heparin Anti-Xa Act, Unfractionated 0.41 IU/mL (0.30-0.70) Triglycerides Level 91 mg/dL (0-150) Cholesterol Level 216 mg/dL (0-200) LDL Cholesterol, Calculated 128 mg/dL (0-100) VLDL Cholesterol, Calculated 18 mg/dL (0-40) Non-HDL Cholesterol Calculated 146 mg/dL (0-129) HDL Cholesterol 70 mg/dL (40-60) Cholesterol/HDL Ratio 3.1 Urine Opiates Screen Neg (NEG) Urine Methadone Screen Neg (NEG) Urine Barbiturates Neg (NEG) Urine Phencyclidine Screen Neg (NEG) Urine Amphetamine/Methamphetamine Neg (NEG) Urine Benzodiazepines Screen Neg (NEG) Urine Cocaine Screen Neg (NEG) Urine Cannabinoids Screen Neg (NEG) Urine Ethyl Alcohol Neg (NEG) Erythrocyte Sedimentation Rate 1 (0-15) Prothrombin Time 13.9 SEC (11.7-14.0) Prothromb Time International Ratio 1.1 (0.8-1.1) C-Reactive Protein, Quantitative 1.9 mg/L (0-3.3) Test 01/21/19 04:30 White Blood Count 5.6 x10^3/uL (4.0-11.0) Red Blood Count 4.65 x10^6/uL (4.30-5.70) Hemoglobin 13.9 g/dL (13.0-17.5) Hematocrit 41.8 % (39.0-53.0) Mean Corpuscular Volume 90 fL (79-100) Mean Corpuscular Hemoglobin 30 pg (25-35) Mean Corpuscular Hemoglobin Concent 33 g/dL (31-37) Red Cell Distribution Width 14.2 % (11.5-14.5) Platelet Count 237 x10^3/uL (140-400) Laboratory Tests Test 01/20/19 09:13 01/20/19 11:00 01/21/19 04:30 Urine Opiates Screen Neg (NEG) Urine Methadone Screen Neg (NEG) Urine Barbiturates Neg (NEG) Urine Phencyclidine Screen Neg (NEG) Urine Amphetamine/Methamphetamine Neg (NEG) Urine Benzodiazepines Screen Neg (NEG) Urine Cocaine Screen Neg (NEG) Urine Cannabinoids Screen Neg (NEG) Urine Ethyl Alcohol Neg (NEG) Erythrocyte Sedimentation Rate 1 (0-15) Prothrombin Time 13.9 SEC (11.7-14.0) Prothromb Time International Ratio 1.1 (0.8-1.1) Troponin I Quantitative 8.426 ng/mL (0.000-0.055) C-Reactive Protein, Quantitative 1.9 mg/L (0-3.3) White Blood Count 5.6 x10^3/uL (4.0-11.0) Red Blood Count 4.65 x10^6/uL (4.30-5.70) Hemoglobin 13.9 g/dL (13.0-17.5) Hematocrit 41.8 % (39.0-53.0) Mean Corpuscular Volume 90 fL (79-100) Mean Corpuscular Hemoglobin 30 pg (25-35) Mean Corpuscular Hemoglobin Concent 33 g/dL (31-37) Red Cell Distribution Width 14.2 % (11.5-14.5) Platelet Count 237 x10^3/uL (140-400) Medications Current Medications Aspirin (Children'S Aspirin) 324 mg 1X ONCE PO Last administered on 01/20/19at 03:23; Start 01/20/19 at 03:15; Stop 01/20/19 at 03:16; Status DC Nitroglycerin (Nitrostat) 0.4 mg PRN Q5MIN PRN SL CHEST PAIN; Start 01/20/19 at 03:15 Morphine Sulfate (Morphine Sulfate) 4 mg PRN Q2HR PRN IV PAIN; Start 01/20/19 at 03:15; Stop 01/21/19 at 03:14; Status DC Nitroglycerin (Nitrostat) 0.4 mg PRN Q5MIN PRN SL CHEST PAIN; Start 01/20/19 at 03:15; Stop 01/20/19 at 08:06; Status DC Heparin Sodium/ Dextrose 500 ml @ 0 mls/hr CONT PRN IV SEE I/O RECORD Last administered on 01/20/19 03:25; Start 01/20/19 at 03:15 Heparin Sodium (Porcine) (Heparin Sodium) 2,800 unit PRN Q6HRS PRN IV FOR UFH LEVEL LESS THAN 0.2 Last administered on 01/20/19 03:24; Start 01/20/19 at 03:15 Info (Anti-Coagulation Monitoring By Pharmacy) 1 each PRN DAILY PRN MC SEE COMMENTS Last administered on 01/20/19 11:21; Start 01/20/19 at 08:15 Aspirin (Ecotrin) 81 mg DAILYWBKFT PO ; Start 01/21/19 at 08:00; Stop 01/21/19 at 08:00; Status DC Metoprolol Tartrate (Lopressor) 12.5 mg BID PO Last administered on 01/20/19 11 :49; Start 01/20/19 at 11:00; Stop 01/20/19 at 13:17; Status DC Iohexol (Omnipaque 300 Mg/ml) 100 ml STK-MED ONCE .ROUTE ; Start 01/20/19 at 11: 55; Stop 01/20/19 at 11:56; Status DC Lidocaine HCl (Lidocaine 1% 20ml Vial) 20 ml STK-MED ONCE .ROUTE ; Start at 11:55; Stop 01/20/19 at 11:56; Status DC Heparin Sodium/ Sodium Chloride 1,000 ml @ As Directed STK-MED ONCE .ROUTE ; Start 01/20/19 at 11:55; Stop 01/20/19 at 11:56; Status DC Fentanyl Citrate (Fentanyl 2ml Vial) 100 mcg STK-MED ONCE .ROUTE ; Start at 12:22; Stop 01/20/19 at 12:23; Status DC Midazolam HCl (Versed) 2 mg STK-MED ONCE .ROUTE ; Start 01/20/19 at 12:22; Stop 01/20/19 at 12:23; Status DC Heparin Sodium/ Sodium Chloride (HEPARIN for ARTERIAL LINE FLUSH) 1,000 unit 1X ONCE IART Last administered on 01/20/19at 13:02; Start 01/20/19 at 13:00; Stop 01/20/19 at 13:01; Status DC Heparin Sodium/ Sodium Chloride (HEPARIN for ARTERIAL LINE FLUSH) 1,000 unit 1X ONCE IART Last administered on 01/20/19 13:03; Start 01/20/19 at 13:00; Stop 01/20/19 at 13:01; Status DC Midazolam HCl (Versed) 2 mg 1X ONCE IV Last administered on 01/20/19 13:03; Start 01/20/19 at 13:00; Stop 01/20/19 at 13:01; Status DC Fentanyl Citrate (Fentanyl 2ml Vial) 25 mcg 1X ONCE IV Last administered on 13:04; Start 01/20/19 at 13:00; Stop 01/20/19 at 13:01; Status DC Iohexol (Omnipaque 300 Mg/ml) 100 ml 1X ONCE IART Last administered on 13:03; Start 01/20/19 at 13:00; Stop 01/20/19 at 13:01; Status DC Lidocaine HCl (Lidocaine 1% 20ml Vial) 19 ml 1X ONCE INJ Last administered on 01/20/19 13:03; Start 01/20/19 at 13:00; Stop 01/20/19 at 13:01; Status DC Info (CONTRAST GIVEN -- Rx MONITORING) 1 each PRN DAILY PRN MC SEE COMMENTS; Start 01/20/19 at 13:15; Stop 01/22/19 at 13:14 Sodium Chloride (Normal Saline Flush) 3 ml QSHIFT PRN IV AFTER MEDS AND BLOOD DRAWS; Start 01/20/19 at 13:30 Sodium Chloride 1,000 ml @ 60 mls/hr [id number] IV Last administered on 01/20/19at 15:01; Start 01/20/19 at 14:00; Stop 01/20/19 at 14:01; Status DC Aspirin (Ecotrin) 325 mg DAILYWBKFT PO ; Start 01/21/19 at 08:00 Metoprolol Succinate (Toprol Xl) 25 mg DAILY PO Last administered on 01/20/19at 15:00; Start 01/20/19 at 14:00 Lisinopril (Prinivil) 10 mg DAILY PO Last administered on 01/20/19at 15:01; Start 01/20/19 at 14:00 Nitroglycerin (Nitrostat) 0.4 mg PRN Q5MIN PRN SL CHEST PAIN; Start 01/20/19 at 13:30; Status UNV Atorvastatin Calcium (Lipitor) 40 mg QHS PO Last administered on 01/20/19at 21:34 ; Start 01/20/19 at 21:00 Vitals/I & O Vital Sign - Last 24 Hours 01/20/19 01/20/19 01/20/19 01/20/19 11:23 11:49 13:04 13:05 Temp 98.1 98.1 Pulse 70 78 72 Resp 18 22 22 B/P (MAP) 139/99 (112) Pulse Ox 97 98 99 O2 Delivery Room Air Nasal Cannula Nasal Cannula O2 Flow Rate 2.0 2.0 01/20/19 01/20/19 01/20/19 01/20/19 13:15 13:30 13:45 14:00 B/P (MAP) 120/89 (99) 116/82 (93) 129/87 (101) 126/86 (99) 01/20/19 01/20/19 01/20/19 01/20/19 14:15 15:00 15:01 15:55 Temp 98.3 98.3 Pulse 70 71 74 Resp 18 B/P (MAP) 121/84 (96) 140/85 (103) Pulse Ox 96 O2 Delivery Room Air 01/20/19 01/20/19 01/20/19 01/21/19 19:00 20:45 23:00 03:00 Temp 98.2 98.0 97.4 98.2 98.0 97.4 Pulse 75 61 67 Resp 18 18 18 B/P (MAP) 122/75 (91) 129/92 (104) 111/58 (75) Pulse Ox 95 96 95 O2 Delivery Room Air Room Air Room Air Room Air 01/21/19 07:00 Temp 98.4 98.4 Pulse 72 Resp 22 B/P (MAP) 115/74 (88) Pulse Ox 98 O2 Delivery Room Air O2 Flow Rate 2.0 Intake and Output 01/20/19 01/20/19 01/21/19 15:00 23:00 07:00 Intake Total 60 ml 530 ml Balance 60 ml 530 ml JESSICA TRENT MD Jan 21, 2019 08:37
[2019-01-21] MEDS: LISINOPRIL 5 MG TABLET. PO SCH (09:42)
[2019-01-21] MEDS: METOPROLOL SUCC 24HR ER 25 MG TAB.ER.24H. PO SCH (09:42)
[2019-01-21 11:04] VITALS: BP 110/76
[2019-01-21] MEDS ORDERED: ASPI325T11 PO (13:25)
[2019-01-21] MEDS ORDERED: LISI-338 PO (13:25)
[2019-01-21] MEDS ORDERED: NITR0.4T SL (13:25)
[2019-01-21] MEDS ORDERED: ATOR20TA58 PO (13:25)
[2019-01-21] MEDS ORDERED: CARV6.2511 PO (13:25)
--- NOTE | 2019-01-21 14:50 | NUR ---
Discharge instructions reviewed with patient and mother. Patient verbalized understanding, patient ambulated to front entrance.
--- NOTE | 2019-01-22 14:25 | PDOC3 ---
Discharge Summary Visit Information Date of Admission: Jan 20, 2019 Date of Discharge: Jan 21, 2019 Admitting Diagnosis: NSTEMI Final Diagnosis Problems Medical Problems: (1) Chest pain Status: Acute Brief Hospital Course Allergies Allergies Coded Allergies Type Severity Reaction Last Updated Verified No Known Drug Allergies 01/20/19 No Vital Signs Vital Signs Date Time Temp Pulse Resp B/P (MAP) Pulse Ox O2 Delivery O2 Flow Rate FiO2 01/21/19 11:04 97.8 68 22 110/76 (87) 98 Room Air 97.8 01/21/19 07:00 2.0 Lab Results Laboratory Tests Test 01/21/19 04:30 White Blood Count 5.6 x10^3/uL (4.0-11.0) Red Blood Count 4.65 x10^6/uL (4.30-5.70) Hemoglobin 13.9 g/dL (13.0-17.5) Hematocrit 41.8 % (39.0-53.0) Mean Corpuscular Volume 90 fL (79-100) Mean Corpuscular Hemoglobin 30 pg (25-35) Mean Corpuscular Hemoglobin Concent 33 g/dL (31-37) Red Cell Distribution Width 14.2 % (11.5-14.5) Platelet Count 237 x10^3/uL (140-400) Brief Hospital Course 33 yo obese male who presents with complaint of chest pain that awoke him from sleeping at 1:00am. He describes the chest pain as feeling like "something is stuck". Patient had an Uber drive him here. He reports the pain gets a little worse with swallowing. He denies having symptoms like this before. He denies radiation of pain through his back or into his neck or arms. He denies shortness of breath. He does report he has had anxiety attacks in the past but that they have caused shaking, never chest pain. He reports that prior to going to sleep he ate chicken fingers at [employer] then took a methylprednisolone that he was prescribed for an ear infection, and laid down. He denies family history of cardiac disease. He denies any PMH. He denies smoking, drug use, or etoh use. He denies recent surgery, immobilization, or travel. Trop noted to be mildly elevated in ED. Was initiated on heparin gtt. Subsequent trop level further elevated this morning. Patient denies any drug use including cocaine or methamphetamine use. UDS pending. Reports suffering severe LILLY in 2009. Was treated at [facility]. Patient thinks he could have had a blood clot of something as he was treated with blood thinners for 3 months. Mother unsure as to what he was diagnosed with and his father is too. To [facility] on 01/20/19 with clean coronaries. Greater than 30 minutes spent on discharge including planning follow up for lifestyle modification. 3 months of ERINN, BB, statin, and ASA on discharge. Plan: Syndrome X is a likelihood - Exercise, consider imipramine, long acting and short acting nitrates and in the future CCB or BB A/P: Chest pain - with elevated trop, this is an NSTEMI, on heparin GTT. Morphine, NTG, ASA. EKG repeat, ECHO, cardiology, as his UDS was negative he went to [facility] urgently with clean coronaries. started on BB, ERINN, statin, ASA for cardiomyopathy on echo EF ~40% Hyperglycemia - A1c 5.2 Obesity - ongoing, needs Hypertension - needs secondary w/u. Treat Discharge Information Condition at Discharge: Improved Follow Up: Weeks (2) Disposition/Orders: D/C to Home Scheduled Aspirin (Aspirin Ec) 325 Mg Tablet.dr, 325 MG PO DAILYWBKFT for CAD for 30 Days , #30 Ref 2 Prescribed by: JESSICA TRENT MD on 01/21/19 1325 Atorvastatin Calcium (Atorvastatin Calcium) 20 Mg Tablet, 20 MG PO QHS for HLD for 30 Days, #30 Ref 2 Prescribed by: JESSICA TRENT MD on 01/21/19 1325 Carvedilol (Carvedilol ) 6.25 Mg Tablet, 6.25 MG PO BIDWMEALS for CARDIAC for 30 Days, #60 Ref 2 Prescribed by: JESSICA TRENT MD on 01/21/19 1325 Lisinopril (Lisinopril) 5 Mg Tablet, 5 MG PO DAILY for HTN for 30 Days, #30 Prescribed by: JESSICA TRENT MD on 01/21/19 1325 Scheduled PRN Nitroglycerin (Nitrostat) 0.4 Mg Tab.subl, 0.4 MG SL PRN Q5MIN PRN for CHEST PAIN for 30 Days, #9 Ref 2 Prescribed by: JESSICA TRENT MD on 01/21/19 1325 JESSICA TRENT MD Jan 22, 2019 14:25
== END 2019-01-21 14:45 | disposition home or self-care (01) | DRG 281 ==
LOC: ER 01:51 → 2 SOUTH 03:05
PROVIDERS: ADMIT Internal Medicine; ATTEND Internal Medicine
PROC: 4A023N7 Measurement of Cardiac Sampling and Pressure, Left Heart, Percutaneous Approach (ICD-10-PCS; principal; 2019-01-20)
PROC: B2111ZZ Fluoroscopy of Multiple Coronary Arteries using Low Osmolar Contrast (ICD-10-PCS; 2019-01-20)
PROC: B2151ZZ Fluoroscopy of Left Heart using Low Osmolar Contrast (ICD-10-PCS; 2019-01-20)
DX: I21.4 Non-ST elevation (NSTEMI) myocardial infarction (principal); I42.9 Cardiomyopathy, unspecified; E66.9 Obesity, unspecified; I25.10 Atherosclerotic heart disease of native coronary artery without angina pectoris; I10 Essential (primary) hypertension; F32.9 Major depressive disorder, single episode, unspecified; F41.9 Anxiety disorder, unspecified; R73.9 Hyperglycemia, unspecified; Z82.49 Family history of ischemic heart disease and other diseases of the circulatory system; Z68.39 Body mass index [BMI] 39.0-39.9, adult
CPT/HCPCS: 36415; 71045; 80053; 80061; 80307; 83036; 83690; 84484; 85025; 85027; 85520; 85610; 85651; 86140; 93005; 93306; 93458; 96361; 96374; 99152; 99153; C1760; C1769; C1892; G0269; J1644; J2250; J3010; J7030; Q9967; 99285-25; C1771

== ENCOUNTER 2021-04-02 12:06 | Emergency (ER) | payer BC ==
[~2021-04-02] VITALS: Ht 167.6 cm; Wt 120.8 kg
[~2021-04-02 12:06] MED LIST: ASPI325T11 PO; ATOR20TA58 PO; CARV6.2511 PO; LISI-517 PO; NITR0.4T24 SL
[2021-04-02 12:25] VITALS: BP 164/85
--- NOTE | 2021-04-02 12:34 | PHYS DOC ---
Past Medical History Past Medical History: Anxiety, Depression, Heart Disease Past Surgical History: Other Additional Past Surgical Histo: EYE SURGERY Smoking Status: Never Smoker Alcohol Use: Occasionally Drug Use: None General Adult EDM: Chief Complaint: ANKLE PROBLEM HPI: HPI: Patient is a 35 year old male with history of CAD, depression, anxiety, who presents to the ED today complaining of 10 out of 10 right lateral ankle pain, symptoms began 1 month ago. Patient denies any known injury. Describes the pain as sharp sometimes throbbing, states most of the pain is on the lateral aspect worse on weightbearing. Denies anything specifically alleviating the pain. Review of Systems: Review of Systems: Constitutional: Denies fever or chills. [] Musculoskeletal: Reports right ankle pain Integument: Denies rash. [] Neurologic: Denies headache, focal weakness or sensory changes. [] Psychiatric: Denies depression or anxiety. [] Heart Score: C/O Chest Pain: N/A Risk Factors: Risk Factors: DM, Current or recent (<one month) smoker, HTN, HLP, family history of CAD, obesity. Risk Scores: Score 0 - 3: 2.5% MACE over next 6 weeks - Discharge Home Score 4 - 6: 20.3% MACE over next 6 weeks - Admit for Clinical Observation Score 7 - 10: 72.7% MACE over next 6 weeks - Early Invasive Strategies Allergies: Allergies: Allergies Coded Allergies Type Severity Reaction Last Updated Verified No Known Drug Allergies 01/20/19 No Physical Exam: PE: Constitutional: Well developed, well nourished, no acute distress, non-toxic appearance. []] Skin: Warm, dry, no erythema, no rash. [] Back: No tenderness, no CVA tenderness. [] Extremities: Right ankle with no obvious deformity, tenderness on palpation of the right lateral and medial ankle. Full range of motion to the right ankle and foot. +2 right pedal pulse. Cap refill less than 2 seconds to right toes Neurologic: Alert and oriented X 3, normal motor function, normal sensory function, no focal deficits noted. [] Psychologic: Affect normal, judgement normal, mood normal. [] Current Patient Data: Vital Signs: Vital Signs Date Time Temp Pulse Resp B/P (MAP) Pulse Ox O2 Delivery O2 Flow Rate FiO2 04/02/21 12:25 99.0 72 16 164/85 (111) Room Air 98.0 99.0 EKG: EKG: [] Radiology/Procedures: Radiology/Procedures: []PROCEDURE: ANKLE RIGHT 3V Exam Date: 04/02/2021 12:27 PM XR EXAM OF ANKLE_RIGHT 3VIEWS Indication: Reason: pain / Spl. Instructions: / History: FINDINGS/ IMPRESSION: Ankle mortise is intact. There is diffuse soft tissue swelling, lateral more prominent than medial. No acute fracture or dislocation. Alignment and joint spaces are maintained. Electronically signed by: Marianna Do MD (04/02/2021 12:40 PM) [facility] DICTATED and SIGNED BY: MARIANNA DO MD DATE: 04/02/21 [id number] 0 Course & Med Decision Making: Course & Med Decision Making Pertinent Labs and Imaging studies reviewed. (See chart for details) This is a 35-year-old male patient complaining of right ankle pain for 1 month. No known injury. Right ankle x-rays interpreted by radiologist are negative for any acute fin dings. Discharge to home. Follow-up with orthopedic doctor. Jenny Disclaimer: Jenny Disclaimer: This electronic medical record was generated, in whole or in part, using a voice recognition dictation system. Departure Departure Impression: Primary Impression: Right ankle pain Qualified Codes: M25.571 - Pain in right ankle and joints of right foot Disposition: HOME / SELF CARE / HOMELESS Condition: STABLE Referrals: MARIVEL LANDERS JR, MD (PCP) EDGAR QUIROZ MD follow up in one week Patient Instructions: Ankle Pain Additional Instructions: You were evaluated in the emergency room for right ankle pain, your right ankle x-rays are negative for any acute findings. Try to ice and elevate the extremity. Follow-up with orthopedic doctor provided in the next 7 days. Take the prescribed medications as prescribed Scripts Diclofenac Potassium (DICLOFENAC POTASSIUM) 50 Mg Tablet 1 TAB PO BID, #20 TAB 0 Refills Prov: CHARLES IBARRA [employer]REL [employer]ENTING MACHINE OPERATOR 04/02/21 Methylprednisolone (MEDROL) 4 Mg Tab.ds.pk 1 PKG PO UD, #1 PKG Prov: CHARLES IBARRA [employer] DEDENTING MACHINE OPERATOR 04/02/21 CHARLES IBARRA BAR[employer] DEDENTING MACHINE OPERATOR April 02, 2021 12:34
--- NOTE | 2021-04-02 12:42 | RAD ---
Exam Date: 04/02/2021 12:27 PM XR EXAM OF ANKLE_RIGHT 3VIEWS Indication: Reason: pain / Spl. Instructions: / History: FINDINGS/ IMPRESSION: Ankle mortise is intact. There is diffuse soft tissue swelling, lateral more prominent than medial. No acute fracture or dislocation. Alignment and joint spaces are maintained. Electronically signed by: Wilfred Do MD (04/02/2021 12:40 PM) [facility]
[2021-04-02] MEDS ORDERED: DICL50TA2 PO (12:59)
[2021-04-02] MEDS ORDERED: METH4TAB2 PO (12:59)
== END 2021-04-02 13:08 | disposition home or self-care (01) ==
LOC: ER 12:06
DX: M25.561 Pain in right knee (principal); I25.10 Atherosclerotic heart disease of native coronary artery without angina pectoris; Z86.79 Personal history of other diseases of the circulatory system
CPT/HCPCS: 73610; 99283